=== PATIENT | female | born 1980 | race Caucasian/White ===

== ENCOUNTER 2017-12-28 09:25 | Emergency (ER) | payer MEDICAID, OTHER ==
[~2017-12-28] VITALS: Ht 170.2 cm; Wt 82.0 kg
[2017-12-28] MEDS ORDERED: IBUPROFEN 600MG TABLET PO ONE (10:15)
[2017-12-28 11:31] VITALS: BP 111/40
== END 2017-12-28 11:33 | disposition home or self-care (01) ==
LOC: ER 10:08
DX: H66.90 Otitis media, unspecified, unspecified ear (principal); H60.90 Unspecified otitis externa, unspecified ear; J06.9 Acute upper respiratory infection, unspecified; F17.200 Nicotine dependence, unspecified, uncomplicated; Z88.5 Allergy status to narcotic agent; Z90.710 Acquired absence of both cervix and uterus
CPT/HCPCS: 71045; 81025; 87804; 99285

== ENCOUNTER 2018-07-10 20:25 | Emergency (ER) | payer BC ==
[~2018-07-10] VITALS: Ht 167.6 cm; Wt 78.0 kg
[2018-07-10] MEDS ORDERED: ALBUTEROL (0.083%) 2.5MG/3ML NEB HHN STA (22:21)
[2018-07-10] MEDS ORDERED: ACETAMINOPHEN 325MG TABLET PO STA (22:21)
[2018-07-10 22:59] LABS: BASOPHILS % 0.6 % (0.0-2.0); EOSINOPHILS % 2.1 % (0.0-5.0); HEMATOCRIT. 44.5 % (36.0-48.0); HEMOGLOBIN. 14.7 g/dL (12.0-16.0); LYMPHOCYTES % 47.6 % (20.0-50.0); MEAN CORPUSCULAR HEMOGLOBIN 27.3 pg (28.0-32.0); MEAN CORPUSCULAR VOLUME 82.8 fL (81.0-99.0); MEAN PLATELET VOLUME 8.9 fl (7.4-10.4); NEUTROPHILS % 42.7 % (40.0-76.0); PLATELET 255 x1000/uL (130-400); RED BLOOD CELL COUNT 5.37 mill/uL (4.2-5.4); RED CELL DISTRIBUTION WIDTH 14.9 % (11.6-14.6)
[2018-07-10 23:05] LABS: CHLORIDE 105 mEq/L (98-107)
[2018-07-11 01:08] VITALS: BP 108/50
== END 2018-07-11 01:14 | disposition home or self-care (01) ==
LOC: ER 20:25
DX: R07.89 Other chest pain (principal); R05 Cough; R50.9 Fever, unspecified; F17.210 Nicotine dependence, cigarettes, uncomplicated
CPT/HCPCS: 36415; 71045; 80053; 84484; 85025; 93005; 94640; 99285; J7611

== ENCOUNTER 2018-08-07 16:37 | Emergency (ER) | payer BC ==
[~2018-08-07] VITALS: Ht 170.2 cm; Wt 76.0 kg
[2018-08-07] MEDS ORDERED: BACITRACIN ZINC OINT UDPKT TOP ONE (18:45)
[2018-08-07] MEDS ORDERED: LIDOCAINE HCL/PF 1% 10 MG/ML 5ML VIAL IJ ONE ×2 (18:45→21:00)
[2018-08-07] MEDS ORDERED: KETOROLAC 60MG/2ML VIAL IM ONE (18:45)
[2018-08-07] MEDS ORDERED: ACETAMINOPHEN 325MG TABLET PO ONE (20:15)
[2018-08-07 21:47] VITALS: BP 131/75
== END 2018-08-07 21:49 | disposition home or self-care (01) ==
LOC: ER 17:00
DX: S01.81XA Laceration without foreign body of other part of head, initial encounter (principal); Z90.710 Acquired absence of both cervix and uterus; Z98.890 Other specified postprocedural states; Z88.5 Allergy status to narcotic agent; Z88.6 Allergy status to analgesic agent; W22.8XXA Striking against or struck by other objects, initial encounter; Y93.89 Activity, other specified; Y92.89 Other specified places as the place of occurrence of the external cause; Y99.8 Other external cause status
CPT/HCPCS: 12011; 96372; 99283; J1885; J3490; Z7610

== ENCOUNTER 2019-01-14 14:27 | Emergency (ER) | payer BC, MEDICAID ==
[~2019-01-14] VITALS: Ht 167.6 cm; Wt 79.0 kg
[2019-01-14 14:36] VITALS: BP 112/73
[2019-01-14] MEDS ORDERED: DIPHENHYDRAMINE 25MG CAPSULE PO ONE (15:15)
[2019-01-14] MEDS ORDERED: HYDROCODONE/ACETAMINOPHEN 5/325MG TABLET PO ONE (15:15)
== END 2019-01-14 15:39 | disposition home or self-care (01) ==
LOC: ER 14:27
DX: M25.562 Pain in left knee (principal); M25.561 Pain in right knee; M25.522 Pain in left elbow; M25.521 Pain in right elbow; M19.90 Unspecified osteoarthritis, unspecified site; Z90.710 Acquired absence of both cervix and uterus; Z88.6 Allergy status to analgesic agent; Z88.5 Allergy status to narcotic agent
CPT/HCPCS: 99283; Q0163

== ENCOUNTER 2019-04-25 08:58 | Emergency (ER) | payer MEDICAID ==
[~2019-04-25] VITALS: Ht 170.2 cm; Wt 118.0 kg
[2019-04-25] MEDS ORDERED: SODIUM CHLORIDE 0.9% 1,000 ML IV ONE (10:08)
[2019-04-25] MEDS ORDERED: ONDANSETRON HCL 4MG/2ML INJ IV STA (10:08)
[2019-04-25 10:27] LABS: BASOPHILS % 0.4 % (0.0-2.0); HEMATOCRIT. 40.2 % (36.0-48.0); HEMOGLOBIN. 13.3 g/dL (12.0-16.0); MEAN CORPUSCULAR HEMOGLOBIN 28.4 pg (28.0-32.0); MEAN CORPUSCULAR VOLUME 86.1 fL (81.0-99.0); MEAN PLATELET VOLUME 8.4 fl (7.4-10.4); MONOCYTES % 6.2 % (2.0-8.0); NEUTROPHILS % 56.4 % (40.0-76.0); PLATELET 226 x1000/uL (130-400); RED BLOOD CELL COUNT 4.67 mill/uL (4.2-5.4); RED CELL DISTRIBUTION WIDTH 14.8 % (11.6-14.6)
[2019-04-25 10:35] LABS: CHLORIDE 108 mEq/L (98-107)
[2019-04-25 10:36] LABS: PROTHROMBIN TIME 10.4 sec (9.6-11.0)
[2019-04-25 10:47] LABS: CLARITY URINE CLOUDY (CLEAR); COLOR URINE YELLOW (YELLOW); KETONES URINE NEGATIVE (NEGATIVE); LEUKOCYTE ESTERASE URINE NEGATIVE (NEGATIVE); NITRITE URINE NEGATIVE (NEGATIVE); OCCULT BLOOD URINE NEGATIVE (NEGATIVE); PH URINE 5.5 (4.5-8.0); PROTEIN URINE NEGATIVE (NEGATIVE); UROBILINOGEN URINE 0.2 E.U./dL (0.2-1.0)
[2019-04-25] MEDS ORDERED: FENTANYL CITRATE/PF 50MCG/ML 2ML VIAL IV ONE (11:30)
[2019-04-25 12:10] VITALS: BP 145/50
== END 2019-04-25 12:13 | disposition home or self-care (01) ==
LOC: ER 08:58
DX: R10.9 Unspecified abdominal pain (principal); R11.2 Nausea with vomiting, unspecified; H92.02 Otalgia, left ear; F17.200 Nicotine dependence, unspecified, uncomplicated; Z98.890 Other specified postprocedural states; Z90.710 Acquired absence of both cervix and uterus; Z88.6 Allergy status to analgesic agent; Z88.5 Allergy status to narcotic agent; Z87.42 Personal history of other diseases of the female genital tract
CPT/HCPCS: 36415; 80053; 81003; 81025; 83690; 85025; 85610; 96361; 96374; 96375; 99283; J2405; J3010; J7030

== ENCOUNTER 2020-08-08 16:35 | Emergency (ER) | payer BC, MEDICAID ==
[~2020-08-08] VITALS: Ht 167.6 cm; Wt 125.0 kg
[2020-08-08 16:42] VITALS: BP 117/81
[2020-08-08] MEDS ORDERED: KETOROLAC 60MG/2ML VIAL IM STA (17:42)
[2020-08-08 17:49] LABS: CLARITY URINE CLEAR (CLEAR); COLOR URINE DARK YELLOW (YELLOW); KETONES URINE NEGATIVE (NEGATIVE); LEUKOCYTE ESTERASE URINE NEGATIVE (NEGATIVE); NITRITE URINE NEGATIVE (NEGATIVE); OCCULT BLOOD URINE NEGATIVE (NEGATIVE); PH URINE 5.5 (4.5-8.0); PROTEIN URINE NEGATIVE (NEGATIVE); SPECIFIC GRAVITY URINE 1.029 (1.005-1.030)
[2020-08-08 18:04] LABS: *BARBITURATES SCREEN URINE NEGATIVE (NEGATIVE)
[2020-08-08 18:05] LABS: *AMPHETAMINES SCREEN URINE NEGATIVE (NEGATIVE); *BENZODIAZEPINES SCREEN URINE NEGATIVE (NEGATIVE); *COCAINE SCREEN URINE NEGATIVE (NEGATIVE); METHADONE URINE SCREEN NEGATIVE (NEGATIVE); OPIATES URINE SCREEN NEGATIVE (NEGATIVE); PHENCYCLIDINE URINE SCREEN NEGATIVE (NEGATIVE)
[2020-08-08 18:08] LABS: CANNABINOID URINE SCREEN PRESUMTIVE POSITIVE (NEGATIVE)
== END 2020-08-08 18:00 | disposition left against medical advice (07) ==
LOC: ER 17:20
DX: M54.89 Other dorsalgia (principal); Z88.2 Allergy status to sulfonamides
CPT/HCPCS: 80305; 81003; 99281; J1885

== ENCOUNTER 2024-11-21 00:07 | Emergency (ER) | payer BC, MEDICAID ==
[~2024-11-21] VITALS: Ht 170.2 cm; Wt 116.0 kg
[2024-11-21 00:18] VITALS: TEMP 97.8; O2SAT 95
[2024-11-21] MEDS: METHOCARBAMOL 500MG TABLET PO ONE (02:15)
[2024-11-21] MEDS: KETOROLAC 15MG/ML VIAL IV NR (03:04)
[2024-11-21] MEDS: ONDANSETRON HCL 4MG/2ML INJ IV NR (03:05)
[2024-11-21] MEDS: DIPHENHYDRAMINE 50MG/ML VIAL IV ONE (03:16)
[2024-11-21] MEDS: MORPHINE SULFATE 4 MG/ML INJ (FOR IV/IM USE) IV ONE (03:55)
[2024-11-21 04:06] LABS: BASOPHILS % 0.1 % (0.0-2.0); HEMATOCRIT. 37.9 % (36.0-48.0); HEMOGLOBIN. 12.6 g/dL (12.0-16.0); LYMPHOCYTES % 14.9 % (20.0-50.0); MEAN CORPUSCULAR HEMOGLOBIN 29.2 pg (28.0-32.0); MEAN CORPUSCULAR HGB CONC 33.2 g/dL (31.0-37.0); MEAN PLATELET VOLUME 8.8 fl (7.4-10.4); MONOCYTES % 3.8 % (2.0-8.0); NEUTROPHILS % 81.2 % (40.0-76.0); PLATELET 203 x1000/uL (130-400); RED BLOOD CELL COUNT 4.31 mill/uL (4.2-5.4); RED CELL DISTRIBUTION WIDTH 14.1 % (11.6-14.6); WHITE BLOOD COUNT 7.8 x1000/uL (4.5-11.0)
[2024-11-21 04:15] LABS: PROTHROMBIN TIME 10.8 sec (9.6-11.0)
[2024-11-21 04:30] LABS: CHLORIDE 109 mEq/L (98-107); POTASSIUM 3.5 mEq/L (3.5-5.1); SODIUM 142 mEq/L (136-145)
[2024-11-21 04:31] LABS: CALCIUM 9.6 mg/dL (8.7-10.4); CARBON DIOXIDE 23 mEq/L (21-32)
[2024-11-21 04:36] LABS: CREATININE 0.9 mg/dL (0.6-1.0); GLUCOSE 93 mg/dL (70-105); UREA NITROGEN BLOOD 13 mg/dL (9-23)
[2024-11-21 04:38] LABS: ALANINE AMINOTRANSFERASE 17 IU/L (10-49); ALBUMIN 4.4 g/dL (3.2-4.8); ASPARTATE AMINOTRANSFERASE 16 IU/L (<34); BILIRUBIN DIRECT 0.2 mg/dL (<=3.0); BILIRUBIN TOTAL 0.7 mg/dL (0.1-1.0); PROTEIN TOTAL 7.2 g/dL (6.0-8.3)
[2024-11-21 05:17] VITALS: BP 139/76; PULSE 65; RESP 16
[2024-11-21] MEDS: MORPHINE SULFATE 2 MG/ML INJ (NOT FOR IM USE) IV ONE (05:17)
[2024-11-21 05:27] LABS: HCG SCREEN NEGATIVE
[2024-11-21 06:10] LABS: CLARITY URINE CLOUDY (CLEAR); COLOR URINE YELLOW (YELLOW); GLUCOSE URINE NEGATIVE (NEGATIVE); KETONES URINE TRACE (NEGATIVE); LEUKOCYTE ESTERASE URINE TRACE (NEGATIVE); NITRITE URINE NEGATIVE (NEGATIVE); OCCULT BLOOD URINE 3+ (NEGATIVE); PROTEIN URINE 1+ (NEGATIVE); SPECIFIC GRAVITY URINE 1.015 (1.005-1.030); UROBILINOGEN URINE 0.2 E.U./dL (0.2-1.0)
[2024-11-21] MEDS ORDERED: TAMS-11 MT (06:20)
[2024-11-21] MEDS ORDERED: CEPH250C2 MT (06:20)
[2024-11-21] MEDS ORDERED: IBUP-2028 MT (06:20)
[2024-11-21] MEDS: CEFTRIAXONE 1GM/50ML 50 ML IV ONE (06:33)
[2024-11-21] MEDS: KETOROLAC 15MG/ML VIAL IV ONE (06:34)
[2024-11-21] MEDS: ACETAMINOPHEN 325MG TABLET PO ONE (06:34)
[2024-11-21] MEDS: ONDANSETRON HCL 4MG/2ML INJ IV ONE (06:34)
[2024-11-21 07:21] LABS: BACTERIA URINE 1+; RBC URINE 50-100 /hpf (0-2); SQUAMOUS EPITHELIAL CELL URINE 3+ /lpf (RARE/1+); YEAST URINE NONE SEEN
== END 2024-11-21 06:40 | disposition home or self-care (01) ==
LOC: ER 00:07
DX: M54.50 Low back pain, unspecified (principal); Z87.442 Personal history of urinary calculi; Z90.710 Acquired absence of both cervix and uterus; Z79.899 Other long term (current) drug therapy
CPT/HCPCS: 99285; 74176; 96365; 96375; 80076; 80048; 81003; 84703; 83690; 85025; 85610; 36415; 96376; J1885; J0696; J1200; J2405; J2270 ×2